=== PATIENT | male | born 2000 | race Caucasian/White ===

== ENCOUNTER 2023-08-23 00:23 | Emergency (ER) | payer MEDICAID ==
[2023-08-23] MEDS ORDERED: predniSONE 20 MG Tab PO ONE (00:24)
== END 2023-08-23 01:05 | disposition home or self-care (01) ==
LOC: FB.ED 00:23
DX: L20.9 Atopic dermatitis, unspecified (principal); E66.9 Obesity, unspecified; F17.210 Nicotine dependence, cigarettes, uncomplicated; Z86.16 Personal history of COVID-19; Z79.899 Other long term (current) drug therapy; Z68.41 Body mass index [BMI] 40.0-44.9, adult
CPT/HCPCS: 99282; 99283; J7512

== ENCOUNTER 2023-12-16 23:30 | Emergency (ER) | payer MEDICAID ==
[2023-12-17] MEDS: diphenhydrAMINE 50 MG Cap PO ONE (00:17)
== END 2023-12-17 00:17 | disposition home or self-care (01) ==
LOC: FB.ED 23:30
DX: T78.40XA Allergy, unspecified, initial encounter (principal); H02.841 Edema of right upper eyelid; F17.200 Nicotine dependence, unspecified, uncomplicated; E66.9 Obesity, unspecified; Z86.16 Personal history of COVID-19
CPT/HCPCS: 99283; A9270

== ENCOUNTER 2024-02-03 19:01 | Emergency (ER) | payer MEDICAID ==
[2024-02-05 20:30] LABS: ADENOVIRUS 40/41 PCR Not Detected; ASTROVIRUS PCR Not Detected; CAMPYLOBACTER PCR Not Detected; CRYPTOSPORIDIUM PCR Not Detected; CYCLOSPORA CAYETANENSIS PCR Not Detected; ENTAMOEBA HISTOLYTICA PCR Not Detected; ENTEROAGGREGATIVE E. COLI PCR Not Detected; ENTEROPATHOGENIC E. COLI PCR Not Detected; ENTEROTOXIGENIC E. COLI PCR Not Detected; GIARDIA LAMBLIA PCR Not Detected; NOROVIRUS GI/GII PCR Not Detected; PLESIOMONAS SHIGELLOIDES PCR Not Detected; ROTAVIRUS A PCR Not Detected; SALMONELLA PCR Not Detected; SAPOVIRUS PCR Not Detected; SHIG/ENTEROINVASIVE E COLI PCR Not Detected; SHIGA TOXIN-PRODUC E. COLI PCR Not Detected; VIBRIO CHOLERAE PCR Not Detected; VIBRIO PCR Not Detected; YERSINIA ENTEROCOLITICA PCR Not Detected
== END 2024-02-03 20:08 | disposition home or self-care (01) ==
LOC: FB.ED 19:01
DX: K92.1 Melena (principal); E66.9 Obesity, unspecified; Z86.16 Personal history of COVID-19
CPT/HCPCS: 87507; 99283

== ENCOUNTER 2024-10-23 22:00 | Emergency (ER) | payer MEDICAID | END 2024-10-23 22:36 | disposition home or self-care (01) | LOC: FB.ED 22:00 | DX: R11.2 Nausea with vomiting, unspecified (principal); Z79.899 Other long term (current) drug therapy; Z86.16 Personal history of COVID-19 | CPT/HCPCS: 99283 ==